=== PATIENT | female | born 1940 | race Two or more races ===

== ENCOUNTER 2018-04-03 20:46 | Emergency (ER) | payer OTHER ==
[~2018-04-03] VITALS: Ht 149.9 cm; Wt 45.4 kg
[~2018-04-03 20:46] MED LIST: ATORVASTATIN CA40 MG PO; CIPRO250 MG PO; CLINDAMYCIN HC300 MG PO; GLIMEPIRIDE4 MG PO; GLUCOTROL10 MG PO; HYZAAR 50-12.1 UDTAB PO; INTESTINEX680 MG PO; OMEPRAZOLE20 MG PO; SYNTHROID75 MCG PO; TOPROL XL50 MG PO; TRADJENTA5 MG PO; ZANTAC300 MG PO
[2018-04-03] MEDS ORDERED: NORVASC2.5 M1 (21:18)
== END 2018-04-03 22:07 | disposition home or self-care (01) ==
LOC: ER 20:46
DX: I95.89 Other hypotension (principal); F41.8 Other specified anxiety disorders; E11.65 Type 2 diabetes mellitus with hyperglycemia

== ENCOUNTER → 2019-10-12 | Emergency (ER) | payer OTHER ==
[~2019-10-12] VITALS: Ht 152.4 cm; Wt 37.2 kg
[~2019-10-12] MED LIST changes: +ANALPRAM HC 2.530 GM RECTAL; +FUSION PLUS CA1 EACH; +NORVASC2.5 M1; +TRADJENTA5 MG; +VITAMIN D210 MCG
== END | disposition home or self-care (01) ==
LOC: ER 03:53
DX: K59.09 Other constipation (principal)

== ENCOUNTER 2022-04-04 08:38 | Emergency (ER) | payer OTHER ==
[~2022-04-04] VITALS: Ht 134.6 cm; Wt 41.7 kg
== END 2022-04-04 12:16 | disposition home or self-care (01) ==
LOC: ER 08:38
DX: S49.91XA Unspecified injury of right shoulder and upper arm, initial encounter (principal); W19.XXXA Unspecified fall, initial encounter; Y93.9 Activity, unspecified; Y92.9 Unspecified place or not applicable; Z91.011 Allergy to milk products